=== PATIENT | female | born 1965 ===

== ENCOUNTER 2018-08-29 07:56 | Emergency (ER) | payer OTHER ==
[~2018-08-29] VITALS: Ht 154.9 cm; Wt 68.0 kg
[~2018-08-29 07:56] MED LIST: AMOXICILLIN500 MG PO; AZOR 10/40 MG T1 TAB PO; CLARINEX-D 21 BOTTLE PO; LASIX40 MG PO
[2018-08-29] MEDS ORDERED: HYZAAR 100-12.1 EACH (08:05)
[2018-08-29] MEDS ORDERED: CARDIZEM120 MG (08:05)
[2018-08-29] MEDS ORDERED: MEDROLPACK PO (10:52)
[2018-08-29] MEDS ORDERED: ZYRTEC10 M3 PO (10:52)
[2018-08-29] MEDS ORDERED: BENADRYL25 MG PO (10:52)
== END 2018-08-29 11:37 | disposition home or self-care (01) ==
LOC: ER 07:56
DX: T78.49XA Other allergy, initial encounter (principal); R21 Rash and other nonspecific skin eruption

== ENCOUNTER 2022-05-24 13:22 | Emergency (ER) | payer OTHER ==
[~2022-05-24] VITALS: Ht 149.9 cm; Wt 67.6 kg
[~2022-05-24 13:22] MED LIST changes: +BENADRYL25 MG PO; +CARDIZEM120 MG; +HYZAAR 100-12.1 EACH; +MEDROLPACK PO; +ZYRTEC10 M3 PO
== END 2022-05-24 20:35 | disposition home or self-care (01) ==
LOC: ER 13:22
DX: U07.1 COVID-19 (principal); B96.0 Mycoplasma pneumoniae [M. pneumoniae] as the cause of diseases classified elsewhere

== ENCOUNTER 2022-06-26 08:19 | Outpatient (CLI) | payer OTHER | END 2022-06-26 08:20 | disposition home or self-care (01) | LOC: LAB 08:19 | PROVIDERS: ATTEND Neuromusculoskeletal Medicine, Sports Medicine | DX: I10 Essential (primary) hypertension (principal); D64.9 Anemia, unspecified; M85.9 Disorder of bone density and structure, unspecified ==